=== PATIENT | female | born 1995 | race Hispanic/Latino ===

== ENCOUNTER 2020-02-03 15:26 | Observation (INO) | payer MEDICAID ==
[~2020-02-03] VITALS: Ht 129.5 cm; Wt 60.3 kg
[~2020-02-03 15:26] MED LIST: LEVO100T12 PO
[2020-02-03 16:13] LABS: APPEARANCE,URINE Clear (CLEAR); BILIRUBIN,URINE Negative (NEGATIVE); COLOR,URINE Yellow (YELLOW); GLUCOSE, URINE (UA) Negative (NEGATIVE); KETONES,URINE 15 mg/dL (NEGATIVE); LEUKOCYTE ESTERASE ,URINE Small (NEGATIVE); NITRATE,URINE Negative (NEGATIVE); OCCULT BLOOD,URINE Negative (NEGATIVE); PROTEIN,URINE Negative (NEGATIVE)
[2020-02-03 16:20] LABS: BACTERIA,URINE Rare /HPF (None Seen); MUCUS,URINE Rare LPF (None Seen); RBC,URINE 0-1 /HPF (0-1); SQUAMOUS EPITHELIAL CELL,UR Few /HPF (0-2); WBC,URINE 0-1 /HPF (0-1)
[2020-02-03] MEDS ORDERED: LACTATED RINGERS 1000ML 1,000 ML IV ONE (16:41)
[2020-02-03] MEDS ORDERED: LACTATED RINGERS 1000ML 1,000 ML IV SCH (16:45)
[2020-02-03 17:56] VITALS: BP 109/63
[2020-04-05] MEDS ORDERED: LEVO88TA7 PO (13:27)
[2020-04-05] MEDS ORDERED: PREN-160 PO (13:29)
== END 2020-02-03 18:29 | disposition home or self-care (01) ==
LOC: LDH 15:26
PROVIDERS: ADMIT Obstetrics & Gynecology; ATTEND Obstetrics & Gynecology
DX: O60.03 Preterm labor without delivery, third trimester (principal); O62.9 Abnormality of forces of labor, unspecified; Z3A.30 30 weeks gestation of pregnancy
CPT/HCPCS: 81001; G0378 ×3; J7120 ×2; 96360

== ENCOUNTER 2020-04-04 | Inpatient (IN) | payer MEDICAID | END 2020-04-06 13:35 | disposition home or self-care (01) | DRG 560 | PROVIDERS: ADMIT Obstetrics & Gynecology | PROC: 10E0XZZ Delivery of Products of Conception, External Approach (ICD-10-PCS; principal; 2020-04-05) | PROC: 0KQM0ZZ Repair Perineum Muscle, Open Approach (ICD-10-PCS; 2020-04-05) | PROC: 3E0234Z Introduction of Serum, Toxoid and Vaccine into Muscle, Percutaneous Approach (ICD-10-PCS; 2020-04-05) ==

== ENCOUNTER 2024-12-25 19:34 | Emergency (ER) | payer BC, MEDICAID ==
[~2024-12-25] VITALS: Ht 160 cm; Wt 88.0 kg
[~2024-12-25 19:34] MED LIST changes: +LEVO88TA7 PO; +PREN-160 PO
--- NOTE | 2024-12-25 19:47 | ERN ---
ED Note History of Present Illness Stated Complaint: FEVER AND HEADACHE Chief Complaint: Fever Time Seen by MD: 19:40 Dictation: PATIENT IS A 29-YEAR-OLD FEMALE HERE WITH FLU-LIKE SYMPTOMS TO INCLUDE SORE THROAT WITH SWOLLEN LYMPH NODES, GENERALIZED BODY ACHES AND A GENERALIZED HEADACHE SHE HAS HAD FOR 2-3 DAYS. SHE DENIES ANY COUGH NO CHANGES IN URINATION. SHE STATES SHE HAS HAD NO NAUSEA NO VOMITING NO DIARRHEA NO LOSS OF TASTE OR SMELL. SHE WENT TO [place] ON THURSDAY AND WITHOUT THE BENEFIT OF ANY LABS OR TESTING WAS TOLD SHE HAD A COLD. NO TREATMENT WAS RENDERED. SEEN AT [facility] LAST NIGHT AND WAS DIAGNOSED WITH LEUKOPENIA AND FEVER AND TOLD TO SEE HER DOCTOR TOMORROW. MEDICATIONS WERE PRESCRIBED. Allergies: Coded Allergies: No Known Drug Allergies (Verified Allergy, 11/28/13) Home Meds Reported Medications #48/Iron Cb&Glu/FA/B6 (Citranatal B-Calm Combo Pack) 1 Each Tablet.seq, 1 EACH PO DAILY, TAB.SEQ 04/05/20 Levothyroxine Sodium (Levothyroxine Sodium) 88 Mcg Tablet, 88 MCG PO DA, TAB 04/05/20 Levothyroxine Sodium (Levothyroxine Sodium) 100 Mcg Tablet, 100 MCG PO DAILY, TAB 05/26/17 Past Medical History Past Medical History: Hypothyroid Surgical History: None PSYCH History: no pertinent psych hx History: Not Applicable RN Note Reviewed/Agreed w/PFSH: Yes Review of System Dictation CONSTITUTIONAL: NEGATIVE EXCEPT FOR HPI FEVER CHILLS HEAD/FACE: NEGATIVE EXCEPT FOR HPI EENT: NEGATIVE EXCEPT FOR HPI SORE THROAT WITH PAINFUL SWALLOWING RESPIRATORY: NEGATIVE EXCEPT FOR HPI GASTROINTESTINAL/ABDOMINAL: NEGATIVE EXCEPT FOR HPI GENITOURINARY: NEGATIVE EXCEPT FOR HPI MUSCULOSKELETAL: NEGATIVE EXCEPT FOR HPI INTEGUMENTARY: NEGATIVE EXCEPT FOR HPI NEUROLOGICAL/PSYCH: NEGATIVE EXCEPT FOR HPI HEADACHE HEMATOLOGIC/LYMPHATIC: NEGATIVE EXCEPT FOR HPI ALL SYSTEMS NEGATIVE, EXCEPT NOTED ABOVE. 13 POINT REVIEW OF SYSTEMS ASSESSED AND ALL NEGATIVE EXCEPT FOR ABOVE. Initial Vital Sign VS Vital Signs Date Time Temp Pulse Resp B/P (MAP) Pulse Ox O2 Delivery O2 Flow Rate FiO2 12/25/24 19:38 100.2 108 20 123/78 99 Room Air Physical Exam Dictation VITAL SIGNS REVIEWED GENERAL APPEARANCE: ALERT, ORIENTED X 3, MY ACUTE DISTRESS, WELL DEVELOPED, NOURISHED. HEAD AND FACE: NON-TRAUMATIC. SINUS TENDERNESS TO FRONTAL AND ETHMOID WITH PALPATION EYES: PERRL, PINK CONJUNCTIVAS, EYELID NO TRAUMA, ANTERIOR CHAMBER WITH ARCUS SENILIS. EARS: PINNAS INTACT AND NO SIGNS OF TRAUMA OR ERYTHEMA EAR CANALS CLEAR AND NO DISCHARGE TM NO ERYTHEMA NOSE: NO DISCHARGE, NO BLEEDING. OROPHARYNX: MOUTH NORMAL, TONGUE PINK, PHARYNX CLEAR,NO ERYTHEMA, TONSILS 3/4 BILATERALLY., NO ABSCESSES NOTED, MUCOUS MEMBRANE MOIST ERYTHEMATOUS, NO EXUDATE UVULA IS MIDLINE VOICE IS CLEAR. LYMPHADENOPATHY NOTED NECK: SUPPLE, NON-TENDER, NO THYROMEGALY, NO MASSES, NO JVD, NO BRUITS BREAST:DEFERRED CHEST:NO TENDERNESS, NO CREPITUS, NO PARADOXICAL MOVEMENT, NO RETRACTIONS LUNGS:CLEAR, WELL-VENTILATED, SYMMETRIC, NO RALES, NO WHEEZING, NO RHONCHI, NO STRIDOR, GOOD BREATH SOUNDS BILATERALLY HEART: REGULAR RATE, REGULAR RHYTHM, NO MURMUR, NO GALLOPS VASCULAR: NO PERIPHERAL EDEMA, ABDOMEN: SOFT, POSITIVE BOWEL SOUNDS, NONDISTENDED, NO GUARDING, NONTENDER, NO REBOUND, NO MASSES NO HEPATOMEGALY, NO SPLENOMEGALY, NO HAJI'S SIGN, NO HERNIAS. RECTAL: DEFERRED GENITAL: DEFERRED NEUROLOGICAL: NORMAL SPEECH, MOTOR FUNCTION INTACT, SENSORY FUNCTION INTACT MUSCULOSKELETAL: NECK NONTENDER, FULL RANGE OF MOTION, BACK NONTENDER, FULL RANGE OF MOTION, EXTREMITIES: NONTENDER, FULL RANGE OF MOTION SKIN: COLOR PINK, DRY, NO TURGOR, NO RASH, NO LACERATIONS, NO ABRASIONS, NO CON TUSIONS. LYMPHATIC: DEFERRED Results (Laboratory/Radiology) Laboratory/Radiology Laboratory Tests Test 12/25/24 19:39 Influenza Type A Antigen Negative For Type A Influenza Type B Antigen Negative For Type B SARS-CoV-2 Antigen (Rapid) PRESUMPTIVE NEGATIVE Group A Streptococcus Rapid negative (NEGATIVE) Labs Reviewed?: Yes ED Course ED Course Orders Procedure Category Date Status Time Rapid (Group A Strep) LAB 12/25/24 Complete 19:43 Influenza Type A & B, LAB 12/25/24 Complete Rapid 19:43 Covid19 (Sars Antigen LAB 12/25/24 Complete Rapid) 19:43 Acetaminophen 500mg PHA 12/25/24 Complete Tab (Tylenol 500mg T 20:00 Ceftriaxone 1g Vial PHA 12/25/24 Complete (Rocephine 1g Inj) 20:00 Current Medications Medications (Trade) Dose Ordered Sig/Cherry Route PRN Reason Start Time Stop Time Status Last Admin Dose Admin Acetaminophen (TYLenol 500MG TAB) 1,000 mg ONCE ONCE PO 12/25/24 20:00 12/25/24 20:01 DC Ceftriaxone Sodium (ROCEphine 1G INJ) 1 gm ONCE ONCE IM 12/25/24 20:00 12/25/24 20:01 DC Vital Signs Date Time Temp Pulse Resp B/P (MAP) Pulse Ox O2 Delivery O2 Flow Rate FiO2 12/25/24 19:38 100.2 108 20 123/78 99 Room Air 2024/LABS ARE NEGATIVE, PATIENT WILL BE TREATED EMPIRICALLY FOR ACUTE TONSILLITIS UNSPECIFIED AND FEVER. GIVEN ROCEPHIN. DISCHARGED HOME WITH AUGMENTIN/IBUPROFEN TOLD SEE HER PRIMARY CARE DOCTOR. Medical Decision Making MDM DISCHARGE INSTRUCTIONS BASED ON SWABS FOR FLU COVID AND STREP. SWABS ARE NEGATIVE PATIENT GIVEN ROCEPHIN FOR EMPIRIC TREATMENT OF ACUTE TONSILLITIS UNSPECIFIED AND FEVER DISCHARGED HOME WITH AUGMENTIN AND IBUPROFEN TOLD TO OBTAIN HER RECORDS FROM [facility] AND SEE HER PRIMARY CARE DOCTOR FOR FOLLOW UP DX & DISP Disposition: Discharge Departure Impression: Primary Impression: Acute tonsillitis, unspecified Additional Impression: Fever Condition: Stable Scripts Amoxicillin/Potassium Clav (Amox Tr-K Clv 875-125 mg Tab) 875 Mg-125 Mg Tablet 1 EACH PO BID for 7 Days, #14 TAB 0 Refills Prov: BECKI DENISE [employer]OR [employer] 12/25/24 Ibuprofen (Ibuprofen 800 mg Tab) 800 Mg Tab 800 MG PO Q8H PRN for fever or pain, #30 TAB 0 Refills Prov: BECKI DENISE [employer] 12/25/24 Additional Instructions: FOLLOW-UP WITH PRIMARY CARE PROVIDER IN 1 TO 2 DAYS. TAKE MEDICATIONS DIRECTED HERE IN THE EMERGENCY ROOM. OKAY TO CONTINUE HOME MEDICATIONS UNLESS OTHERWISE DISCUSSED DURING YOUR VISIT IN THE EMERGENCY ROOM TODAY. RETURN TO YOUR NEAREST EMERGENCY ROOM IF SYMPTOMS WORSEN OR IF THERE IS NO IMPROVEMENT. CALL 911 IF YOU NEED IMMEDIATE ASSISTANCE. TAKE TYLENOL OR MOTRIN [id number] NEEDED AND IF NO CONTRAINDICATIONS ARE PRESENT. INCREASE ORAL HYDRATION. A WOUND CULTURE OR URINE CULTURE WAS ORDERED HERE IN THE EMERGENCY ROOM DEPARTMENT PLEASE FOLLOW-UP WITH PRIMARY CARE PROVIDER AND ADVISE THEM TO GET REPEAT PORTS FROM OUR FACILITY. IF YOU HAD ANY BOLA WRAP/SPLINTS THAT WERE APPLIED HERE, PLEASE DO NOT REMOVE THEM UNTIL YOU SEE YOUR PRIMARY CARE OR SPECIALTY. TAKE AUGMENTIN DIRECTED UNTIL GONE., TAKE IBUPROFEN NEEDED FOR FEVER PAIN WITH FOOD. INCREASE YOUR WATER INTAKE AND SEE YOUR PRIMARY CARE DOCTOR FOR FOLLOW UP AND MANAGEMENT. Referrals: JOCELYN MARQUEZ MD (PCP) Time of Disposition: 20:27 I have reviewed the case, and I agree with, Diagnosis and Plan BECKI DENISE NP Dec 25, 2024 19:47
[2024-12-25 20:04] LABS: RAPID GROUP A STREP negative (NEGATIVE)
[2024-12-25 20:14] LABS: COVID19 (SARS ANTIGEN RAPID) PRESUMPTIVE NEGATIVE (NEGATIVE); INFLUENZA TYPE A Negative For Type A (NEGATIVE); INFLUENZA TYPE B Negative For Type B (NEGATIVE)
[2024-12-25] MEDS ORDERED: AMOX1TAB16 PO (20:28)
[2024-12-25] MEDS ORDERED: IBUP-2077 PO (20:28)
[2024-12-25] MEDS: cefTRIAXone 1G VIAL IM ONE (20:41)
[2024-12-25] MEDS: acetaMINOPHEN 500 MG TABLET PO ONE (20:42)
[2024-12-25 20:46] VITALS: BP 121/84; PULSE 99; RESP 18; TEMP 99; O2SAT 98
== END 2024-12-25 20:47 | disposition home or self-care (01) ==
LOC: EDH 19:34
DX: J03.90 Acute tonsillitis, unspecified (principal); R50.9 Fever, unspecified; E03.9 Hypothyroidism, unspecified; Z79.890 Hormone replacement therapy; Z20.822 Contact with and (suspected) exposure to COVID-19
CPT/HCPCS: 99284; 87426; 87880; 87804 ×2; 96372; J0696

== ENCOUNTER → 2025-02-24 | Outpatient (CLI) | payer BC ==
[~2025-02-24] MED LIST changes: +AMOX1TAB16 PO; +IBUP-2077 PO
--- NOTE | 2025-02-24 14:13 | HMCIMG ---
CT HEAD/BRAIN W/O CONTRAST HISTORY: Headaches COMPARISON: None TECHNIQUE: Multiple sequential axial images of the head were obtained from the base of the skull through vertex. Patient was not given contrast through intravenous route. FINDINGS: The ventricles and extraventricular CSF spaces are nondilated for patient's age. There is no midline shift, mass effect or herniation. No acute intracranial bleed is seen. Visualized portion of the paranasal sinuses are grossly within normal limits. IMPRESSION: 1. No acute intracranial bleed is seen. CT was performed with one or more following dose reduction techniques: automated exposure control, adjustment of the mA and kv according to patient's size, or use of a iterative reconstruction technique.
== END | disposition home or self-care (01) ==
LOC: RAH 13:25
PROVIDERS: ATTEND Internal Medicine
DX: R51.9 Headache, unspecified (principal)
CPT/HCPCS: 70450